=== PATIENT | female | born 1965 | race Hispanic/Latino ===

== ENCOUNTER 2016-12-11 13:20 | Emergency (ER) | payer BC, SELFPAY | END 2016-12-11 13:54 | disposition left against medical advice (07) | LOC: ERS 13:20 | DX: Z53.21 Procedure and treatment not carried out due to patient leaving prior to being seen by health care provider (principal) ==

== ENCOUNTER 2018-05-08 00:43 | Emergency (ER) | payer OTHER ==
--- NOTE | 2018-05-08 07:59 | RAD ---
FOUR VIEWS LEFT KNEE: HISTORY: Left knee pain. FINDINGS: AP, lateral, and both oblique views left knee obtained. Four views left knee demonstrate no evidence of joint effusions. No evidence of acute left knee fractures, subluxations, or bony lesions seen. IMPRESSION: Normal 4 views left knee. POS: [facility]
== END 2018-05-08 01:30 | disposition home or self-care (01) ==
LOC: SCSER 00:43
DX: S83.92XA Sprain of unspecified site of left knee, initial encounter (principal); I10 Essential (primary) hypertension; E11.9 Type 2 diabetes mellitus without complications; Z86.73 Personal history of transient ischemic attack (TIA), and cerebral infarction without residual deficits; X50.9XXA Other and unspecified overexertion or strenuous movements or postures, initial encounter

== ENCOUNTER 2018-10-31 09:09 | Outpatient (CLI) | payer OTHER ==
--- NOTE | 2018-10-31 09:30 | RAD ---
RADIOGRAPH CHEST 2 VIEWS: DATE: 10/31/2018 HISTORY: 53-year-old female with chest pain FINDINGS: There is no airspace density, pulmonary edema, pleural effusion, pneumothorax, or cardiomegaly. IMPRESSION: No acute cardiopulmonary findings.
== END 2018-10-31 09:10 | disposition home or self-care (01) ==
LOC: BICRAD 09:09
PROVIDERS: ATTEND Family Medicine
DX: R07.9 Chest pain, unspecified (principal)
CPT/HCPCS: 71046

== ENCOUNTER 2018-12-08 13:21 | Outpatient (CLI) | payer OTHER ==
--- NOTE | 2018-12-08 15:50 | MMO ---
Bilateral MAMMO Bilat Screen [facility]. CLINICAL HISTORY: Patient is 53 years old and is seen for screening. The patient has no family history of breast cancer. The patient has no personal history of cancer. VIEWS: The views performed were: bilateral craniocaudal with tomosynthesis and bilateral mediolateral oblique with tomosynthesis. This study has been interpreted with the assistance of computer-aided detection. MAMMOGRAM FINDINGS: There are scattered fibroglandular densities. There are no suspicious masses, suspicious calcifications, or new areas of architectural distortion. IMPRESSION: THERE IS NO MAMMOGRAPHIC EVIDENCE OF MALIGNANCY. A ROUTINE FOLLOW-UP MAMMOGRAM IN 1 YEAR IS RECOMMENDED. THE RESULTS OF THIS EXAM WERE SENT TO THE PATIENT. ACR BI-RADS Category 1 - Negative MAMMOGRAPHY NOTE: 1. A negative mammogram report should not delay a biopsy if a dominant of clinically suspicious mass is present. 2. Approximately 10% to 15% of breast cancers are not detected by mammography. 3. Adenosis and dense breasts may obscure an underlying neoplasm. Reported by: LILLI BROWN MD Electonically Signed: [id number]
== END 2018-12-08 13:22 | disposition home or self-care (01) ==
LOC: BICMAMMO 13:21
PROVIDERS: ATTEND Internal Medicine Infectious Disease
DX: Z12.31 Encounter for screening mammogram for malignant neoplasm of breast (principal)
CPT/HCPCS: 77063; 77067

== ENCOUNTER 2020-04-28 08:57 | Outpatient (CLI) | payer OTHER ==
--- NOTE | 2020-04-28 09:21 | RAD ---
3 views left foot: 04/28/2020 COMPARISON: None HISTORY: Injury, trauma, pain FINDINGS: No fracture or dislocation. No radiopaque foreign body or subcutaneous gas. Degenerative ch nayan noted at the first metatarsal-phalangeal joint. There is mild enthesophyte formation at the origin of the plantar aponeurosis. IMPRESSION: No acute findings.
== END 2020-04-28 08:58 | disposition home or self-care (01) ==
LOC: BICRAD 08:57
PROVIDERS: ATTEND Podiatrist
DX: M79.675 Pain in left toe(s) (principal)

== ENCOUNTER 2020-07-26 15:41 | Outpatient (CLI) | payer OTHER | END 2020-07-26 15:42 | disposition home or self-care (01) | LOC: BICRAD 15:41 | PROVIDERS: ATTEND Family Medicine | DX: M62.830 Muscle spasm of back (principal); M47.816 Spondylosis without myelopathy or radiculopathy, lumbar region; M47.814 Spondylosis without myelopathy or radiculopathy, thoracic region; M41.9 Scoliosis, unspecified | CPT/HCPCS: 72072; 72100 ==

== ENCOUNTER 2021-04-17 12:05 | Outpatient (CLI) | payer OTHER | END 2021-04-17 12:06 | disposition home or self-care (01) | LOC: BICRAD 12:05 | PROVIDERS: ATTEND Internal Medicine Infectious Disease | DX: R05.9 Cough, unspecified (principal) | CPT/HCPCS: 71046 ==